=== PATIENT | female | born 1965 | race Asian ===

== ENCOUNTER 2023-09-28 11:28 | Emergency (ER) | payer SELFPAY ==
[2023-09-28] VITALS (58 sets, daily range): BP systolic 138–259; BP diastolic 77–179; PULSE 75–142; RESP 5–44; TEMP 36.3–36.6; O2SAT 90–100
--- NOTE | 2023-09-28 11:35 | DI.RAD.S_ITS ---
PROCEDURE: XR CHEST 1V INDICATIONS: altered mental status tube placement TECHNIQUE: One view of the chest was acquired. COMPARISON: None. FINDINGS: Surgical changes and devices: ETT tip is approximately 3.5 cm above the neftali. NG tube tip is in the stomach lumen below the left hemidiaphragm. Lungs and pleura: Lungs are clear. No pleural effusions or pneumothorax. Mediastinum: Mediastinal contours appear normal. Heart size is normal. Bones and chest wall: No suspicious bony lesions. Overlying soft tissues appear unremarkable. IMPRESSION: ETT and NG tube are in satisfactory position. No focal infiltrate, pleural effusion or pneumothorax. Dictated by: Geoffrey Méndez M.D. on 09/28/2023 at 12:22 Approved by: Geoffrey Méndez M.D. on 09/28/2023 at 12:23
--- NOTE | 2023-09-28 11:36 | DI.CT.S_ITS ---
PROCEDURE: CT HEAD/BRAIN WO CON INDICATIONS: altered TECHNIQUE: Noncontrast 4.5 mm thick angled axial sections acquired from the foramen magnum to the vertex, with coronal and sagittal reformats. For radiation dose reduction, the following was used: automated exposure control, adjustment of mA and/or kV according to patient size. COMPARISON: None. FINDINGS: Image quality: Diagnostic. CSF spaces: Basal cisterns are patent. No extra-axial fluid collections. The ventricles are symmetric in size and shape. Brain: Large acute intraparenchymal hemorrhage involving left cerebral hemisphere is seen with significant surrounding vasogenic edema. The hematoma measures up to 6.2 x 4.6 x 4.4 cm in size series 2, image 14 and series 4, image 28. Significant mass effect on the adjacent left lateral ventricle is seen. There is up to 7 mm midline shift to the right. There is cerebral volume loss for age, with resultant ventricular and sulcal prominence. There are periventricular and deep white matter chronic small vessel ischemic changes. There is intracranial internal carotid artery atherosclerosis. Skull and face: Calvarium and visualized facial bones appear intact, without suspicious lesions. Sinuses: Visualized sinuses and mastoids are clear. IMPRESSION: 1. Large acute left cerebral hemisphere intraparenchymal hemorrhage with extensive surrounding vasogenic edema and up to 7 mm midline shift to the right. Significant mass effect on the adjacent left lateral ventricle. 2. No other area of intracranial bleed. Findings were reported to the referring clinician on 09/28/2023 at 11:50 a.m.. Dictated by: Geoffrey Méndez M.D. on 09/28/2023 at 11:51 Approved by: Geoffrey Méndez M.D. on 09/28/2023 at 11:54
--- NOTE | 2023-09-28 11:40 | EKG_ITS ---
[address] [address] Test Date: 2023-09-28 Pat Name: Conor Roberts Department: Room: Gender: Female Community Engagement Specialist: NELLIE : [id number] Requested By: Order Number: [id number] Reading MD: Severiano Grimes MD Measurements Intervals [place] Rate: 76 P: 9 OR: 152 QRS: 33 QRSD: 74 T: 74 QT: 438 QTc: 492 Interpretive Statements Sinus rhythm with fusion complexes Nonspecific ST abnormality NO PRIOR TRACING Electronically Signed On 09-29-2023 7:52:25 PDT by Severiano Grimes MD
[2023-09-28] MEDS: SUCCINYLCHOLINE 200 MG/10 ML VIAL 75 MG IV (11:53)
[2023-09-28] MEDS: ETOMIDATE 2 MG/ML 10 ML VIAL 10 MG IV (11:53)
[2023-09-28] MEDS: propofoL 1,000 MG/100 ML VIAL 1.671 MG IV (11:55)
[2023-09-28] MEDS: LORazepam 2 MG/ML INJ IV ×2 (11:56→12:25)
--- NOTE | 2023-09-28 11:57 | ED.AMS ---
HPI - Altered Mental Status General Chief Complaint: Altered Mental Status Stated Complaint: seizure or low blood pressure Time Seen by Provider: 09/28/23 11:34 Source: family Mode of arrival: Wheelchair History of Present Illness HPI narrative: Patient 58-year-old female brought in by friend with known history of hypertension she does drink alcohol presents today is found down and unresponsive. She did not show up for work this morning. She would the last 2 days off. Her friend went to check on her. She does not speak Haitian family is out of the country. Her family is in [facility] Patient History Social History Smoking Status: Never smoker Smoking Status: Never smoker alcohol intake frequency: a few times a week Substance Use Type: does not use Exam Initial Vital Signs Initial Vital Signs: Vital Signs Temperature 97.4 F L 09/28/23 11:28 Pulse Rate 76 09/28/23 11:28 Respiratory Rate 24 09/28/23 11:28 Blood Pressure 152/103 H 09/28/23 11:28 Pulse Oximetry 100 09/28/23 11:28 Oxygen Delivery Method Room Air 09/28/23 11:28 Gen.: Unresponsive sonorous breathing HEENT: Pupils equal reactive Neck: No JVD Lungs: Clear bilaterally Cardiac: Regular rate rhythm, peripheral radial pulse intact Abdomen: Soft nontender Extremities, no gross bony deformity Neurologic: Contractions noted no obvious tremor Skin: Petechiae noted on right side of face Procedures Intubation sedative: Etomidate Mg Given: 10 paralytic: Succinylcholine Mg Given: 75 Laryngoscope: other (glide scope) ET Tube Size: 7 Tube Secured Depth (cm): 23 Tube Secured Location: lips Tube Placement Confirmation: Visualized tube passing through cords, Equal breath sounds bilaterally, No breath sounds over epigastrium, Confirmation by capnometry and Chest Xray Patient Tolerated Procedure: Well and No complications Course Orders Ordered: ED Orders 09/28/23 11:35 XR chest 1V Stat EKG-12 Lead Stat 09/28/23 11:36 CT head/brain wo con Stat 09/28/23 12:05 Acetaminophen Stat Ammonia (NH3) Stat Complete Blood Count AUTO DIFF Stat Comprehensive Metabolic Panel Stat Ethanol (ETOH) Stat PTT Partial Thromboplastin Marck Stat Prolactin Stat Prothrombin Time INR Stat Salicylate Stat Thyroid Stimulating Hormone Stat 09/28/23 12:12 Urinalysis and Microscopic Stat Urine Culture Stat Urine Drug Screen, Rapid Stat 09/28/23 12:14 Lactate (Lactic Acid) Stat Osmolality, Serum Stat Procalcitonin Stat Troponin & CK Cardiac Panel Stat Discontinued Medications Etomidate (Etomidate 2 Mg/Ml 10 Ml Vial) 10 mg IV NOW ONE Stop: 09/28/23 11:54 Last Admin: 09/28/23 11:53 Dose: 10 mg Documented By: RB Sodium Chloride (Normal Saline 0.9%) 1,000 mls @ 1,000 mls/hr IV BOLUS ONE Stop: 09/28/23 12:33 Last Infusion: 09/28/23 13:25 Dose: Infused Documented By: Admin: 09/28/23 12:16 Dose: 1,000 mls/hr Documented By: RB Tranexamic Acid 1,000 mg/ (Sodium Chloride) 100 mls @ 200 mls/hr IV NOW ONE Stop: 09/28/23 12:25 Last Infusion: 09/28/23 12:39 Dose: Infused Documented By: Admin: 09/28/23 12:04 Dose: 200 mls/hr Documented By: BS Propofol (Propofol) 1,000 mg in 100 mls @ 1.671 mls/hr IV TITRATE MARYAN; Protocol Last Titration: 09/28/23 13:48 Dose: 50 mcg/kg/min, 16.71 mls/hr Documented By: Titration: 09/28/23 13:37 Dose: 50 mcg/kg/min, 16.71 mls/hr Documented By: Titration: 09/28/23 13:34 Dose: 40 mcg/kg/min, 13.368 mls/hr Documented By: Titration: 09/28/23 13:27 Dose: 50 mcg/kg/min, 16.71 mls/hr Documented By: Titration: 09/28/23 12:24 Dose: 59.25 mcg/kg/min, 19.8 mls/hr Documented By: Titration: 09/28/23 12:22 Dose: 49.37 mcg/kg/min, 16.5 mls/hr Documented By: Titration: 09/28/23 12:18 Dose: 25 mcg/kg/min, 8.355 mls/hr Documented By: Titration: 09/28/23 12:05 Dose: 19.75 mcg/kg/min, 6.6 mls/hr Documented By: Admin: 09/28/23 11:55 Dose: 5 mcg/kg/min, 1.671 mls/hr Documented By: RB Sodium Chloride (Hypertonic Saline 3%) 100 mls @ 600 mls/hr IV NOW ONE Stop: 09/28/23 12:07 Last Admin: 09/28/23 13:02 Dose: Not Given Documented By: RB Propofol (Propofol) 1,000 mg in 100 mls @ 1.671 mls/hr IV TITRATE MARYAN; Protocol Last Admin: 09/28/23 12:16 Dose: Not Given Documented By: RB Nicardipine HCl 25 mg/ Sodium (Chloride) 250 mls @ 50 mls/hr IV TITRATE MARYAN; Protocol Last Titration: 09/28/23 13:49 Dose: 0 mg/hr, 0 mls/hr Documented By: Titration: 09/28/23 13:35 Dose: 0 mg/hr, 0 mls/hr Documented By: Titration: 09/28/23 13:09 Dose: 5 mg/hr, 50 mls/hr Documented By: Titration: 09/28/23 12:59 Dose: 7.5 mg/hr, 75 mls/hr Documented By: Admin: 09/28/23 12:36 Dose: 5 mg/hr, 50 mls/hr Documented By: RB Levetiracetam 1,000 mg/ Sodium (Chloride) 110 mls @ 440 mls/hr IV NOW ONE Stop: 09/28/23 12:06 Last Infusion: 09/28/23 12:35 Dose: Infused Documented By: Admin: 09/28/23 12:19 Dose: 440 mls/hr Documented By: RB Fentanyl 1,000 mcg/ Dextrose 250 mls @ 9.748 mls/hr IV TITRATE MARYAN; Protocol Last Titration: 09/28/23 13:47 Dose: 1.18 mcg/kg/hr, 16.5 mls/hr Documented By: Titration: 09/28/23 13:24 Dose: 1.18 mcg/kg/hr, 16.5 mls/hr Documented By: Admin: 09/28/23 12:39 Dose: 0.7 mcg/kg/hr, 9.748 mls/hr Documented By: RB Lorazepam (Lorazepam 2 Mg/Ml Inj) 2 mg IV NOW ONE Stop: 09/28/23 11:57 Last Admin: 09/28/23 11:56 Dose: 2 mg Documented By: RB Lorazepam (Lorazepam 2 Mg/Ml Inj) 2 mg IV NOW ONE Stop: 09/28/23 12:25 Last Admin: 09/28/23 12:25 Dose: 2 mg Documented By: RB Propofol (Propofol 200 Mg/20 Ml Vial) 50 mg IV NOW ONE Stop: 09/28/23 12:06 Last Admin: 09/28/23 12:14 Dose: 50 mg Documented By: RB Succinylcholine Chloride (Succinylcholine 200 Mg/10 Ml Vial) 75 mg IV NOW ONE Stop: 09/28/23 11:54 Last Admin: 09/28/23 11:53 Dose: 75 mg Documented By: RB Vital Signs Vital signs: Vital Signs - 8 hr 09/28/23 11:28 09/28/23 11:37 09/28/23 11:40 Temperature 97.4 F L Pulse Rate 76 76 76 Respiratory Rate 24 36 H 32 H Blood Pressure 152/103 H Pulse Oximetry 100 99 99 Oxygen Delivery Method Room Air Room Air Room Air 09/28/23 11:42 09/28/23 11:42 09/28/23 11:45 Temperature Pulse Rate 75 81 Respiratory Rate 26 H Blood Pressure 148/103 H Pulse Oximetry 100 100 Oxygen Delivery Method Room Air Room Air Room Air 09/28/23 11:46 09/28/23 11:47 09/28/23 11:49 Temperature Pulse Rate 82 79 Respiratory Rate 41 H Blood Pressure 147/98 H Pulse Oximetry 100 Oxygen Delivery Method Room Air 09/28/23 11:49 09/28/23 11:50 09/28/23 11:52 Temperature Pulse Rate 78 82 Respiratory Rate 19 32 H Blood Pressure 155/108 H Pulse Oximetry 90 L Oxygen Delivery Method Room Air 09/28/23 11:52 09/28/23 11:55 09/28/23 12:00 Temperature Pulse Rate 142 H 128 H Respiratory Rate 19 32 H Blood Pressure 165/77 H Pulse Oximetry 100 100 Oxygen Delivery Method Mechanical Ventilation Mechanical Ventilation 09/28/23 12:00 09/28/23 12:03 09/28/23 12:03 Temperature Pulse Rate 104 H Respiratory Rate 33 H Blood Pressure 259/148 H 242/179 H Pulse Oximetry 100 Oxygen Delivery Method Mechanical Ventilation 09/28/23 12:05 09/28/23 12:06 09/28/23 12:06 Temperature Pulse Rate 101 H 112 H Respiratory Rate 33 H 36 H Blood Pressure 216/121 H Pulse Oximetry 100 100 Oxygen Delivery Method Mechanical Ventilation Mechanical Ventilation 09/28/23 12:10 09/28/23 12:10 09/28/23 12:12 Temperature Pulse Rate 110 H 104 H Respiratory Rate 41 H 39 H Blood Pressure 209/118 H Pulse Oximetry 100 100 Oxygen Delivery Method Mechanical Ventilation Mechanical Ventilation 09/28/23 12:12 09/28/23 12:15 09/28/23 12:18 Temperature Pulse Rate 101 H 97 H Respiratory Rate 29 H 23 Blood Pressure 178/98 H Pulse Oximetry 100 100 Oxygen Delivery Method Mechanical Ventilation Mechanical Ventilation 09/28/23 12:18 09/28/23 12:20 09/28/23 12:21 Temperature Pulse Rate 103 H Respiratory Rate 32 H Blood Pressure 215/119 H 219/125 H Pulse Oximetry 98 Oxygen Delivery Method Mechanical Ventilation 09/28/23 12:21 09/28/23 12:25 09/28/23 12:30 Temperature Pulse Rate 99 H 112 H 101 H Respiratory Rate 42 H 30 H 44 H Blood Pressure Pulse Oximetry 99 98 100 Oxygen Delivery Method Mechanical Ventilation Mechanical Ventilation 09/28/23 12:31 09/28/23 12:31 09/28/23 12:33 Temperature Pulse Rate 102 H Respiratory Rate 42 H Blood Pressure 208/121 H 236/118 H Pulse Oximetry 100 Oxygen Delivery Method Mechanical Ventilation 09/28/23 12:33 09/28/23 12:35 09/28/23 12:37 Temperature Pulse Rate 98 H 97 H 109 H Respiratory Rate 36 H 39 H 29 H Blood Pressure Pulse Oximetry 100 100 98 Oxygen Delivery Method Mechanical Ventilation Mechanical Ventilation Mechanical Ventilation 09/28/23 12:37 09/28/23 12:39 09/28/23 12:39 Temperature Pulse Rate 102 H Respiratory Rate 36 H Blood Pressure 235/127 H 209/102 H Pulse Oximetry 100 Oxygen Delivery Method Mechanical Ventilation 09/28/23 12:40 09/28/23 12:42 09/28/23 12:42 Temperature Pulse Rate 98 H 103 H Respiratory Rate 41 H 42 H Blood Pressure 182/113 H Pulse Oximetry 100 100 Oxygen Delivery Method Mechanical Ventilation Mechanical Ventilation 09/28/23 12:45 09/28/23 12:45 09/28/23 12:48 Temperature Pulse Rate 110 H Respiratory Rate 28 H Blood Pressure 189/93 H 180/92 H Pulse Oximetry 100 Oxygen Delivery Method Mechanical Ventilation 09/28/23 12:48 09/28/23 12:50 09/28/23 12:51 Temperature Pulse Rate 111 H 108 H 114 H Respiratory Rate 41 H 35 H 27 H Blood Pressure Pulse Oximetry 100 94 94 Oxygen Delivery Method Mechanical Ventilation Mechanical Ventilation Mechanical Ventilation 09/28/23 12:51 09/28/23 12:54 09/28/23 12:54 Temperature Pulse Rate 108 H Respiratory Rate 24 Blood Pressure 183/84 H 181/86 H Pulse Oximetry 100 Oxygen Delivery Method Mechanical Ventilation 09/28/23 12:55 09/28/23 12:57 09/28/23 12:57 Temperature Pulse Rate 105 H 115 H Respiratory Rate 35 H 36 H Blood Pressure 186/88 H Pulse Oximetry 100 97 Oxygen Delivery Method Mechanical Ventilation Mechanical Ventilation 09/28/23 13:00 09/28/23 13:00 09/28/23 13:03 Temperature Pulse Rate 109 H 105 H Respiratory Rate 34 H 42 H Blood Pressure 180/88 H Pulse Oximetry 98 100 Oxygen Delivery Method Mechanical Ventilation Mechanical Ventilation 09/28/23 13:03 09/28/23 13:05 09/28/23 13:06 Temperature Pulse Rate 107 H 108 H Respiratory Rate 29 H 39 H Blood Pressure 160/78 H Pulse Oximetry 100 100 Oxygen Delivery Method Mechanical Ventilation Mechanical Ventilation 09/28/23 13:06 09/28/23 13:09 09/28/23 13:09 Temperature Pulse Rate 110 H Respiratory Rate 40 H Blood Pressure 149/84 H 155/89 H Pulse Oximetry 100 Oxygen Delivery Method Mechanical Ventilation 09/28/23 13:10 09/28/23 13:12 09/28/23 13:12 Temperature Pulse Rate 113 H 113 H Respiratory Rate 39 H 41 H Blood Pressure 157/89 H Pulse Oximetry 100 100 Oxygen Delivery Method Mechanical Ventilation Mechanical Ventilation 09/28/23 13:15 09/28/23 13:15 09/28/23 13:18 Temperature Pulse Rate 110 H Respiratory Rate 40 H Blood Pressure 161/89 H 155/82 H Pulse Oximetry 98 Oxygen Delivery Method Mechanical Ventilation 09/28/23 13:18 09/28/23 13:20 09/28/23 13:22 Temperature Pulse Rate 107 H 110 H 120 H Respiratory Rate 25 H 38 H 24 Blood Pressure Pulse Oximetry 99 100 91 Oxygen Delivery Method Mechanical Ventilation Mechanical Ventilation Mechanical Ventilation 09/28/23 13:22 09/28/23 13:23 09/28/23 13:24 Temperature 97.9 F Pulse Rate 109 H Respiratory Rate 21 Blood Pressure 158/98 H Pulse Oximetry 99 Oxygen Delivery Method Mechanical Ventilation 09/28/23 13:24 09/28/23 13:25 09/28/23 13:27 Temperature Pulse Rate 111 H 107 H Respiratory Rate 36 H 34 H Blood Pressure 157/79 H Pulse Oximetry 100 100 Oxygen Delivery Method Mechanical Ventilation 09/28/23 13:27 09/28/23 13:30 09/28/23 13:30 Temperature Pulse Rate 105 H Respiratory Rate 24 Blood Pressure 145/81 H 142/81 H Pulse Oximetry 100 Oxygen Delivery Method Mechanical Ventilation 09/28/23 13:31 09/28/23 13:31 09/28/23 13:32 Temperature Pulse Rate 104 H 104 H Respiratory Rate 22 23 Blood Pressure 140/85 Pulse Oximetry 100 100 Oxygen Delivery Method Mechanical Ventilation Mechanical Ventilation 09/28/23 13:32 09/28/23 13:33 09/28/23 13:33 Temperature Pulse Rate 104 H Respiratory Rate 19 Blood Pressure 144/86 H 138/85 Pulse Oximetry 99 Oxygen Delivery Method Mechanical Ventilation 09/28/23 13:35 09/28/23 13:35 Temperature Pulse Rate 106 H Respiratory Rate 29 H Blood Pressure 165/94 H Pulse Oximetry 99 Oxygen Delivery Method Mechanical Ventilation MDM - Altered Mental Status Lab Data 09/28/23 12:05 09/28/23 12:05 Labs: Lab Results 09/28/23 09/28/23 09/28/23 Range/Units 12:05 12:12 12:12 WBC 13.8 H (4.5-11.0) X10^3/uL RBC 6.37 H (4.0-5.2) X10^6/uL Hgb 13.6 (12.0-16.0) g/dL Hct 43.0 (36-46) % MCV 67.5 L (80-100) fL MCH 21.3 L (26-34) PG MCHC 31.6 (30-36) % RDW 15.1 H (11.6-14.8) % Plt Count 311 (150-400) X10^3/uL Neut % (Auto) 88.8 H (50-75) % Lymph % (Auto) 7.2 L (25-40) % Garland % (Auto) 3.9 (3-14) % Eos % (Auto) 0.0 L (2-4) % Baso % (Auto) 0.1 (0-2) % Neut # (Auto) 15620 H (3539-2206) /uL Lymph # (Auto) 1000 L (5118-3912) /uL Garland # (Auto) 500 (0-900) /uL Eos # (Auto) 0 (0-450) /uL Baso # (Auto) 0 (0-100) /uL RBC Morphology See below Anisocytosis 1+ H Microcytosis 1+ H PT 10.8 (9.4-12.5) SECONDS INR 0.9 (0.9-1.3) APTT 31 (25.1-36.5) SECONDS Sodium 136 L (137-145) mmol/L Potassium 5.1 (3.4-5.1) mmol/L Chloride 101 (98-107) mmol/L Carbon Dioxide 25 (22-32) mmol/L BUN 17 (7-17) mg/dL Creatinine 0.64 (0.52-1.04) mg/dL Estimated GFR > 60 (>60) mL/min BUN/Creatinine Ratio 26.6 H (6-22) Glucose 145 H (70-100) mg/dL Lactate (0.7-2.1) mmol/L Calcium 9.4 (8.4-10.2) mg/dL Total Bilirubin 1.0 (0.2-1.3) mg/dL AST 29 (14-36) IU/L ALT 18 (<35) IU/L Alkaline Phosphatase 73 (38-126) U/L Ammonia < 9 L (9-30) umol/L Total Creatine Kinase (30-135) U/L Troponin I (0.01-0.034) ng/mL Total Protein 9.2 H (6.3-8.2) g/dL Albumin 5.1 H (3.5-5.0) g/dL Globulin 4.1 (1.7-4.1) g/dL Albumin/Globulin Ratio 1.2 (1.0-2.8) Procalcitonin (<0.5) ng/mL TSH 0.882 (0.47-4.68) uIU/mL Prolactin 6.3 (3.0-18.6) ng/mL Urine Color Yellow Urine Appearance Clear Urine pH 6.0 Normal (4.5-8.0) Ur Specific Harrington >=1.030 H (1.000-1.035) Urine Protein 3+ H (Negative) Urine Glucose (UA) Negative (Negative) g/dL Urine Ketones Trace H (NEGATIVE) Urine Occult Blood 1+ H (Negative) Urine Nitrate Negative (Negative) Urine Bilirubin Negative (NEGATIVE) Urine Urobilinogen 0.2 (0.2) E.U./dL Ur Leukocyte Esterase Negative (NEGATIVE) Urine RBC 5-10/hpf H (0-5/HPF) Urine WBC None seen (0-5/HPF) Ur Squamous Epith Cells None seen (0-5/HPF) Amorphous Sediment 2+ Urine Bacteria None seen (None) Urine Mucus 1+ H (Negative) Ur Culture Indicated? Cult not indicated Vol Urine Centrifuged 10ml (spun) Salicylates < 1.0 (<20) mg/dL U Opiates 300ng/mL cut Negative (Negative) Ur Oxycodone Screen Negative (Negative) Urine Methadone Screen Negative (Negative) Acetaminophen < 10 (10-30) ug/mL Ur Barbiturates Screen Negative (Negative) U Tricyclic Antidepress Negative (Negative) Ur Phencyclidine Scrn Negative (Negative) Ur Amphetamines Screen Negative (Negative) U Methamphetamines Scrn Negative (Negative) Ur MDMA Scrn (Ecstasy) Negative (Negative) U Benzodiazepines Scrn Negative (Negative) Urine Cocaine Screen Negative (Negative) U Marijuana (THC) Screen Negative (Negative) Urine Specific Harrington Normal (Normal) Ethyl Alcohol < 10 ( - 10) mg/dL Ur Creatinine Normal (Normal) 09/28/23 Range/Units 12:14 WBC (4.5-11.0) X10^3/uL RBC (4.0-5.2) X10^6/uL Hgb (12.0-16.0) g/dL Hct (36-46) % MCV (80-100) fL MCH (26-34) PG MCHC (30-36) % RDW (11.6-14.8) % Plt Count (150-400) X10^3/uL Neut % (Auto) (50-75) % Lymph % (Auto) (25-40) % Garland % (Auto) (3-14) % Eos % (Auto) (2-4) % Baso % (Auto) (0-2) % Neut # (Auto) (4143-1760) /uL Lymph # (Auto) (4032-3526) /uL Garland # (Auto) (0-900) /uL Eos # (Auto) (0-450) /uL Baso # (Auto) (0-100) /uL RBC Morphology Anisocytosis Microcytosis PT (9.4-12.5) SECONDS INR (0.9-1.3) APTT (25.1-36.5) SECONDS Sodium (137-145) mmol/L Potassium (3.4-5.1) mmol/L Chloride (98-107) mmol/L Carbon Dioxide (22-32) mmol/L BUN (7-17) mg/dL Creatinine (0.52-1.04) mg/dL Estimated GFR (>60) mL/min BUN/Creatinine Ratio (6-22) Glucose (70-100) mg/dL Lactate 3.6 H (0.7-2.1) mmol/L Calcium (8.4-10.2) mg/dL Total Bilirubin (0.2-1.3) mg/dL AST (14-36) IU/L ALT (<35) IU/L Alkaline Phosphatase (38-126) U/L Ammonia (9-30) umol/L Total Creatine Kinase 115 (30-135) U/L Troponin I < 0.012 (0.01-0.034) ng/mL Total Protein (6.3-8.2) g/dL Albumin (3.5-5.0) g/dL Globulin (1.7-4.1) g/dL Albumin/Globulin Ratio (1.0-2.8) Procalcitonin 0.052 (<0.5) ng/mL TSH (0.47-4.68) uIU/mL Prolactin (3.0-18.6) ng/mL Urine Color Urine Appearance Urine pH (4.5-8.0) Ur Specific Harrington (1.000-1.035) Urine Protein (Negative) Urine Glucose (UA) (Negative) g/dL Urine Ketones (NEGATIVE) Urine Occult Blood (Negative) Urine Nitrate (Negative) Urine Bilirubin (NEGATIVE) Urine Urobilinogen (0.2) E.U./dL Ur Leukocyte Esterase (NEGATIVE) Urine RBC (0-5/HPF) Urine WBC (0-5/HPF) Ur Squamous Epith Cells (0-5/HPF) Amorphous Sediment Urine Bacteria (None) Urine Mucus (Negative) Ur Culture Indicated? Vol Urine Centrifuged Salicylates (<20) mg/dL U Opiates 300ng/mL cut (Negative) Ur Oxycodone Screen (Negative) Urine Methadone Screen (Negative) Acetaminophen (10-30) ug/mL Ur Barbiturates Screen (Negative) U Tricyclic Antidepress (Negative) Ur Phencyclidine Scrn (Negative) Ur Amphetamines Screen (Negative) U Methamphetamines Scrn (Negative) Ur MDMA Scrn (Ecstasy) (Negative) U Benzodiazepines Scrn (Negative) Urine Cocaine Screen (Negative) U Marijuana (THC) Screen (Negative) Urine Specific Harrington (Normal) Ethyl Alcohol ( - 10) mg/dL Ur Creatinine (Normal) Point of Care Testing Glucose POC [address] scan - head: Radiologist's Impression: PROCEDURE: CT HEAD/BRAIN WO CON INDICATIONS: altered TECHNIQUE: Noncontrast 4.5 mm thick angled axial sections acquired from the foramen magnum to the vertex, with coronal and sagittal reformats. For radiation dose reduction, the following was used: automated exposure control, adjustment of mA and/or kV according to patient size. COMPARISON: None. FINDINGS: Image quality: Diagnostic. CSF spaces: Basal cisterns are patent. No extra-axial fluid collections. The ventricles are symmetric in size and shape. Brain: Large acute intraparenchymal hemorrhage involving left cerebral hemisphere is seen with significant surrounding vasogenic edema. The hematoma measures up to 6.2 x 4.6 x 4.4 cm in size series 2, image 14 and series 4, image 28. Significant mass effect on the adjacent left lateral ventricle is seen. There is up to 7 mm midline shift to the right. There is cerebral volume loss for age, with resultant ventricular and sulcal prominence. There are periventricular and deep white matter chronic small vessel ischemic changes. There is intracranial internal carotid artery atherosclerosis. Skull and face: Calvarium and visualized facial bones appear intact, without suspicious lesions. Sinuses: Visualized sinuses and mastoids are clear. IMPRESSION: 1. Large acute left cerebral hemisphere intraparenchymal hemorrhage with extensive surrounding vasogenic edema and up to 7 mm midline shift to the right. Significant mass effect on the adjacent left lateral ventricle. 2. No other area of intracranial bleed. Findings were reported to the referring clinician on 09/28/2023 at 11:50 a.m.. ECG Data Attestation: I personally reviewed and interpreted this ECG as follows: Interpretation: Sinus rhythm rate 76 WA interval [address] changes no priors to compare MDM Narrative Medical decision making narrative: MDM CC: Unresponsive Complicating co-morbidities: Hypertension alcoholism Corroborating data: Friends and coworkers Joanie [phone] Medical records reviewed: None Differential considered: Seizure, intracranial hemorrhage, hypoglycemia sepsis toxicology overdose Exam documented above, pertinent findings include: Minimally responsive to pain, spontaneous breathing adolfo Lab Test results independently reviewed as above. Pertinent findings: CBC 13.8 hemoglobin 13.6 hematocrit 43.0 platelets 311, PT 10.8, INR 0.9 PTT 31, sodium 136 potassium 5.1 chloride 101 carbon dioxide 25 BUN 17 creatinine 0.64 glucose 145 lactate 3.6 bilirubin 1.0 AST 29 ALT 18 alk-phos 73 ammonia undetectable CPK 115 troponin negative prolactin 0.6, salicylates negative Tylenol negative alcohol negative Independently reviewed EKG as above Imaging studies independently reviewed: Large intracranial hemorrhage with 7 mm shift Consultations: It did take some time to get in touch with [facility]. They are having multiple critical calls 12:30 Dr. Reynoso, stroke fellow [facility] updated patient's symptoms test results needs a CT angio, does not accept at this time 12:45 again [facility] is consulted would strongly recommend CT angio okay to call and set up transport does not recommend hypertonic Treatments: TxA, Keppra, Ativan, propofol drip fentanyl drip Hypertonic ordered but not given Re-evaluations: Patient's blood pressure still quite high but actively needing more sedation. Once sedation is improved nicardipine is also started. Blood pressure improves as well goal less than 160/110 Discussion: Patient presents today unresponsive found to have large intracranial hemorrhage with shift. Not known to be on anticoagulation. Complicating factors include she does not speak Haitian and families are with the country in [facility]. Coworkers are close friends and at bedside. Unfortunately unable to get CT angio, due to stability of patient patient needed further sedation and blood pressure management Critical Care Time Critical Care Time Critical Care Time: Yes Total Critical Care Time: 45 Attestation: The high probability of a clinically significant, sudden or life threatening deterioration of the neurovascular system(s) required my full and direct attention, intervention and personal management. The aggregate critical care time was [45] minutes. This time is in addition to time spent performing reported procedures but includes the following: [x] Data Review and interpretation [x] Patient assessment and monitoring of vital signs [x] Documentation [x] Medication orders and management Discharge Plan Departure Patient Disposition: [facility] Clinical Impression: Intracranial hemorrhage Referrals: Miscellaneous,DoctorMD [Primary Care Provider] -
[2023-09-28] MEDS: TRANEXAMIC ACID 1,000 MG in SODIUM CHLORIDE 0.9% 100 ML 200 MG IV (12:04)
[2023-09-28 12:11] LABS: Add Manual Diff / Slide Review NO; Basophils Absolute Auto 0 /uL (0-100); Basophils Percent Auto 0.1 % (0-2); Eosinophils Absolute Auto 0 /uL (0-450); Hemoglobin 13.6 g/dL (12.0-16.0); Lymphocytes Absolute Auto 1000 /uL (1100-4500); Lymphocytes Percent Auto 7.2 % (25-40); Mean Corpuscular HGB Conc 31.6 % (30-36); Mean Corpuscular Hemoglobin 21.3 PG (26-34); Mean Corpuscular Volume 67.5 fL (80-100); Monocytes Absolute Auto 500 /uL (0-900); Monocytes Percent Auto 3.9 % (3-14); Neutrophils Absolute Auto 12200 /uL (1500-7000); Neutrophils Percent Auto 88.8 % (50-75); Platelet Count 311 X10^3/uL (150-400); Red Blood Cell Count 6.37 X10^6/uL (4.0-5.2); Red Cell Distribution Width 15.1 % (11.6-14.8); White Blood Cell Count 13.8 X10^3/uL (4.5-11.0)
[2023-09-28] MEDS: propofoL 200 MG/20 ML VIAL 50 MG IV (12:14)
[2023-09-28] MEDS: SODIUM CHLORIDE 0.9% 1,000 ML 1000 ML IV (12:16)
[2023-09-28 12:18] LABS: INR 0.9 (0.9-1.3); Prothrombin Time 10.8 SECONDS (9.4-12.5)
[2023-09-28] MEDS: levETIRAcetam 1,000 MG in SODIUM CHLORIDE 0.9% 100 ML 440 MG IV (12:19)
[2023-09-28 12:21] LABS: PTT Partial Thromboplastin Tim 31 SECONDS (25.1-36.5)
[2023-09-28 12:22] LABS: Ammonia (NH3) < 9 umol/L (9-30)
[2023-09-28 12:24] LABS: Acetaminophen < 10 ug/mL (10-30); Alanine Aminotransferase 18 IU/L (<35); Albumin 5.1 g/dL (3.5-5.0); Albumin Globulin Ratio 1.2 (1.0-2.8); Alkaline Phosphatase 73 U/L (38-126); Aspartate Aminotransferase 29 IU/L (14-36); BUN Creatinine Ratio 26.6 (6-22); Blood Urea Nitrogen 17 mg/dL (7-17); Calcium 9.4 mg/dL (8.4-10.2); Carbon Dioxide 25 mmol/L (22-32); Chloride 101 mmol/L (98-107); Estimated Glomerular Filt Rate > 60 mL/min (>60); Ethanol (ETOH) < 10 mg/dL; Globulin 4.1 g/dL (1.7-4.1); Glucose 145 mg/dL (70-100); HEMOLYSIS 28 (0-50); Potassium 5.1 mmol/L (3.4-5.1); Salicylate < 1.0 mg/dL (<20); Sodium 136 mmol/L (137-145); Total Protein 9.2 g/dL (6.3-8.2)
[2023-09-28 12:31] LABS: Creatine Kinase 115 U/L (30-135)
[2023-09-28 12:32] LABS: Lactate (Lactic Acid) 3.6 mmol/L (0.7-2.1)
[2023-09-28 12:34] LABS: Anisocytosis 1+; Microcytosis 1+
[2023-09-28] MEDS: NICARDIPINE 25 MG in SODIUM CHLORIDE 0.9% 240 ML 50 MG IV (12:36)
[2023-09-28 12:39] LABS: Prolactin 6.3 ng/mL (3.0-18.6)
[2023-09-28] MEDS: fentaNYL 1,000 MCG in DEXTROSE 5% IN WATER 230 ML 9.748 MCG IV (12:39)
[2023-09-28 12:44] LABS: Troponin I < 0.012 ng/mL (0.01-0.034)
[2023-09-28 12:49] LABS: Procalcitonin 0.052 ng/mL (<0.5)
[2023-09-28 12:53] LABS: Appearance Urine UA CLEAR; Bilirubin Urine UA NEGATIVE (NEGATIVE); Color Urine UA YELLOW; Glucose Urine UA NEGATIVE (Negative); Ketones Urine UA TRACE (NEGATIVE); Leukocyte Esterase Urine UA NEGATIVE (NEGATIVE); Nitrite Urine UA NEGATIVE (Negative); Occult Blood Urine UA 1+ (Negative); Protein Urine UA 3+ (Negative); Specific Gravity Urine UA >=1.030 (1.000-1.035); Urobilinogen Urine UA 0.2 E.U./dL (0.2)
[2023-09-28 12:54] LABS: Thyroid Stimulating Hormone 0.882 uIU/mL (0.47-4.68)
[2023-09-28 12:58] LABS: Ur Creatinine Normal (Normal); Ur Specific Gravity Normal (Normal); Urine pH Normal (Normal)
[2023-09-28 12:59] LABS: UR Morphine/Opiate cutoff 300 Negative (Negative); Urine Amphetamines Negative (Negative); Urine Barbiturates Negative (Negative); Urine Benzodiazepines Negative (Negative); Urine Cocaine Negative (Negative); Urine MDMA Negative (Negative); Urine Methadone Negative (Negative); Urine Methamphetamines Negative (Negative); Urine Oxycodone Negative (Negative); Urine Phencyclidine Negative (Negative); Urine Tetrahydrocannabinol Negative (Negative); Urine Tricyclic Antidepressant Negative (Negative)
--- NOTE | 2023-09-28 13:00 | PC.NURSE ---
Provider gave verbal order to try to maintain blood pressure 160/110.
[2023-09-28 13:08] LABS: Amorphous Sediment Urine 2+; Bacteria Urine None Seen; Culture Indicated Urine Cult Not Indicated; Mucus Urine 1+ (Negative); RBC Urine 5-10/HPF (0-5/HPF); Squamous Epithelial Cell Urine None Seen (0-5/HPF); Urine Volume 10mL (spun); WBC Urine None Seen (0-5/HPF)
--- NOTE | 2023-09-28 13:35 | PC.NURSE ---
Provider ordered to pause nicardapine.
--- NOTE | 2023-09-28 13:42 | PC.NURSE ---
[facility] arrival at 1330. [facility]
--- NOTE | 2023-09-28 13:43 | PC.NURSE ---
Patient transferred to [facility] vitals machine.
--- NOTE | 2023-09-28 13:50 | PC.NURSE ---
[facility] took patient drips for Nicardapine, Fentanyl, and Propofol. Nicardapine was still paused the others were taken running at their final rates.
[2023-09-28 13:54] LABS: Reflexed Lactate in 2 Hours Y
--- NOTE | 2023-09-28 14:04 | PC.NURSE ---
This RN and [facility]EN helped [place] [facility] transfer this patient onto their stretcher.
--- NOTE | 2023-09-28 14:07 | PC.NURSE ---
[facility] requested an additional 1000mg bottle of propofol for in route transport. This RN called Pharmacist Lionel who walked the bottle over and handed it to the [facility] crew.
--- NOTE | 2023-09-28 14:09 | PC.NURSE ---
Patient left department on stretcher with GRACE Pereira and partner at [id number].
--- NOTE | 2023-09-28 23:35 | PC.NURSE ---
Pt's niece should up to the ER, asking if Pt's necklace was found in room 2. states patient was sent with shorts and underwear but shirt and two yellow medal necklaces were missing.
[2023-09-30 18:40] LABS: Osmolality, Serum 290 mOsmol/kg (275-295)
== END 2023-09-28 14:09 | disposition short-term general hospital (02) ==
PROVIDERS: Emergency Provider Emergency Medicine
DX: S06.30AA Unspecified focal traumatic brain injury with loss of consciousness status unknown, initial encounter (principal)
CPT/HCPCS: 31500; 36415; 70450; 71045; 80053; 80305; 80320; 80329; 81001; 82140; 82550; 82962; 83605; 83930; 84145; 84146; 84443; 84484; 85025; 85610; 85730; 87086; 93005; 94002; 94799; 96365; 96367; 96375; 96376; 99285; 99291; 99292; G0480; J0330; J1953; J2060; J2704; J3010